=== PATIENT | female | born 1955 | race Caucasian/White ===

== ENCOUNTER 2020-01-19 06:43 | Day surgery (SDC) | payer MEDICARE ==
[2020-01-17 07:50] LABS: COVID AG,FIA SOURCE NASOPHARYNGEAL
[~2020-01-19] VITALS: Ht 157.5 cm; Wt 71.0 kg
[2020-01-19] MEDS ORDERED: MIDAZOLAM HCL 2 MG/2 ML VIAL IVP ONE (06:44)
[2020-01-19] MEDS ORDERED: FentaNYL CITRATE-PF 100 MCG/2 ML VIAL IVP ONE (06:44)
[2020-01-19] MEDS ORDERED: RINGERS SOLUTION,LACTATED 500 ML IV ONE ×2 (06:45→06:51)
[2020-01-19] MEDS ORDERED: MOXIFLOXACIN HCL 0.5% 3 ML OPHTHALMIC SOLUTION ONE (06:51)
[2020-01-19] MEDS: MOXIFLOXACIN HCL 0.5% 3 ML OPHTHALMIC SOLUTION OS SCH ×3 (07:10→07:22)
[2020-01-19 07:19] LABS: GLUCOMETER DEV NAME(LOC) SDS.; GLUCOSE,POINT OF CARE 107 MG/DL (70-110)
[2020-01-19] MEDS ORDERED: MitoMYcin 0.2 MG/VIAL KIT FOR OPHTHALMIC USE OD ONE (08:30)
[2020-01-19] MEDS ORDERED: TETRACAINE HCL/PF 0.5% 4 ML OPHTHALMIC SOLUTION ONE (16:25)
[2020-01-19] MEDS ORDERED: POVIDONE-IODINE 10% 15 ML SOLUTION UD ONE (16:25)
[2020-01-19] MEDS ORDERED: BALANCED SALT 15 ML OPHTHALMIC IRRIG.SOLN ONE (16:25)
== END 2020-01-19 11:45 | disposition home or self-care (01) ==
LOC: SURGERY 06:43
PROVIDERS: ATTEND Ophthalmology Glaucoma Specialist
DX: H11.002 Unspecified pterygium of left eye (principal); E11.9 Type 2 diabetes mellitus without complications; I10 Essential (primary) hypertension; E66.3 Overweight; Z98.890 Other specified postprocedural states
CPT/HCPCS: 65426; 82962; 87426; C1716; C9803; J2250; J3010; J7120